=== PATIENT | female | born 1940 | race Caucasian/White ===

== ENCOUNTER → 2018-02-02 15:00 | Outpatient (CLI) | payer MEDICARE, SELFPAY | PROVIDERS: PCP Family Medicine; Visit Provider Nurse Practitioner Family | DX: Z45.018 Encounter for adjustment and management of other part of cardiac pacemaker (principal); I49.5 Sick sinus syndrome; I10 Essential (primary) hypertension; R55 Syncope and collapse | CPT/HCPCS: 93288; 99213 ==

== ENCOUNTER → 2018-08-31 15:12 | Outpatient (BNVA) | payer MEDICARE, SELFPAY | PROVIDERS: PCP Family Medicine; Visit Provider Nurse Practitioner Family | DX: I10 Essential (primary) hypertension (principal); I49.5 Sick sinus syndrome; Z45.010 Encounter for checking and testing of cardiac pacemaker pulse generator [battery] | CPT/HCPCS: 93288; 99213 ==

== ENCOUNTER 2018-10-25 02:20 | Outpatient (CLI) | payer MEDICARE, SELFPAY ==
[2018-10-25 11:46] LABS: ALT 28 U/L (12-78); AST 25 U/L (15-37); Albumin 3.7 g/dL (3.4-5.0); Alkaline Phosphatase 42 U/L (46-116); Anion Gap 8.2 mmol/L (3-11); BUN 11 mg/dL (7-18); Bilirubin, Total 0.5 mg/dL (0.2-1.0); CO2 29.8 mmol/L (21.0-32.0); CREATININE 0.89 mg/dL (0.55-1.02); Calcium 9.2 mg/dL (8.5-10.1); Chloride 105 mmol/L (98-107); Cholesterol 191 mg/dL (50-200); Glucose 86 mg/dL (70-100); HDL Cholesterol 53 mg/dL (40-60); LDL CHOLESTEROL 116 mg/dL (<100); Potassium 4.1 mmol/L (3.5-5.1); Sodium 143 mmol/L (136-145); TSH (W/Ref FT4) 3.47 uIU/mL (0.358-3.74); Total Protein 6.9 g/dL (6.4-8.2); Triglyceride 97 mg/dL (30-150)
== END 2018-10-25 02:40 ==
PROVIDERS: PCP Family Medicine; Visit Provider Family Medicine
DX: E03.9 Hypothyroidism, unspecified (principal); E78.5 Hyperlipidemia, unspecified; I10 Essential (primary) hypertension
CPT/HCPCS: 36415; 80053; 80061; 83721; 84443

== ENCOUNTER 2018-10-27 09:08 | Outpatient (CLI) | payer MEDICARE, SELFPAY ==
--- NOTE | 2018-10-27 08:00 | DI.RAD_ITS ---
SYMPTOM/DIAGNOSIS: LT SHOULDER PAIN M25.519 LEFT SHOULDER: Five views. There are mild hypertrophic changes seen at the acromioclavicular joint and greater tuberosity. The glenohumeral joint appears well maintained apart from mild spurring at the inferior aspect of the glenoid. The bones are intact. The soft tissues are unremarkable. IMPRESSION: Mild degenerative changes of the left shoulder.
== END 2018-10-27 09:28 ==
PROVIDERS: PCP Family Medicine; Visit Provider Family Medicine
DX: M25.512 Pain in left shoulder (principal); M19.012 Primary osteoarthritis, left shoulder
CPT/HCPCS: 73030

== ENCOUNTER → 2019-03-08 14:38 | Outpatient (BNVA) | payer MEDICARE, SELFPAY | PROVIDERS: PCP Family Medicine; Visit Provider Nurse Practitioner Family | DX: I49.5 Sick sinus syndrome (principal); I10 Essential (primary) hypertension; Z45.018 Encounter for adjustment and management of other part of cardiac pacemaker | CPT/HCPCS: 93280; 99024 ==

== ENCOUNTER → 2020-02-29 10:20 | Outpatient (BNVA) | payer MEDICARE, SELFPAY | PROVIDERS: PCP Family Medicine; Referring Provider Family Medicine; Visit Provider Internal Medicine Cardiovascular Disease | DX: I48.91 Unspecified atrial fibrillation (principal); Z45.018 Encounter for adjustment and management of other part of cardiac pacemaker | CPT/HCPCS: 93280; 99212 ==

== ENCOUNTER 2020-09-18 11:44 | Outpatient (REF) | payer MEDICARE, SELFPAY ==
[2020-09-18 12:56] LABS: ALT 34 U/L (14-59); AST 31 U/L (15-37); Albumin 3.9 g/dL (3.4-5.0); Alkaline Phosphatase 39 U/L (46-116); Anion Gap 9.2 mmol/L (3-11); BUN 10 mg/dL (7-18); Bilirubin, Total 0.6 mg/dL (0.2-1.0); CO2 28.8 mmol/L (21.0-32.0); CREATININE 0.9 mg/dL (0.55-1.02); Calculated LDL 117 mg/dL (<100); Chloride 106 mmol/L (98-107); Cholesterol 198 mg/dL (<200); Glucose 71 mg/dL (74-106); HDL Cholesterol 62 mg/dL (40-60); Potassium 4.4 mmol/L (3.5-5.1); Sodium 144 mmol/L (136-145); TSH (W/Ref FT4) 6.79 uIU/mL (0.36-3.74); Triglyceride 99 mg/dL (<150)
[2020-09-18 13:44] LABS: FREE T4 1.03 ng/dL (0.76-1.46)
== END 2020-09-18 11:45 | disposition home or self-care (01) ==
LOC: LBN 11:44
PROVIDERS: PCP Family Medicine; Visit Provider Family Medicine
DX: E03.9 Hypothyroidism, unspecified (principal); E78.5 Hyperlipidemia, unspecified
CPT/HCPCS: 80053; 80061; 84439; 84443

== ENCOUNTER → 2020-10-17 13:47 | Outpatient (BNVA) | payer MEDICARE, SELFPAY | PROVIDERS: PCP Family Medicine; Referring Provider Family Medicine; Visit Provider Physician Assistant | DX: I49.5 Sick sinus syndrome (principal); Z45.018 Encounter for adjustment and management of other part of cardiac pacemaker | CPT/HCPCS: 93280; 99212 ==

== ENCOUNTER 2021-03-14 12:11 | Outpatient (CLI) | payer MEDICARE, SELFPAY ==
--- NOTE | 2021-03-14 10:30 | DI.RAD_ITS ---
Exam(s) XR STANDING ALIGNMENT XR KNEE RT 1V EXAM: XR STANDING ALIGNMENT and XR knee RT 1 V CLINICAL HISTORY: right knee pain. TECHNIQUE: 2D digital imaging was performed. Five views were obtained. COMPARISON: CR XR KNEE RT 1V from 03/14/2021 FINDINGS: The hips are well maintained. The patient has a left total knee replacement. The orthopedic hardwar e appears in good position on the single frontal view of the knee. In the right knee there is marked narrowing of the medial femoral tibial joint space. Periarticular spurring is seen involving all 3 joint compartments. Chondrocalcinosis in the femoral tibial joint is noted. There is a tiny knee rj int effusion. Atherosclerosis is present. The ankles are well maintained. The right lower extremit y measures 87.1 cm. The left lower extremity measures 87.8 cm. IMPRESSION: 1. Moderately severe osteoarthritis of the right knee. 2. Left TKR. DATA REPOSITORY: RADIATION DOSE DELIVERED:
== END 2021-03-14 12:12 | disposition home or self-care (01) ==
LOC: DIORS 12:11
PROVIDERS: PCP Family Medicine; Referring Provider Family Medicine; Visit Provider Student in an Organized Health Care Education/Training Program
DX: G89.29 Other chronic pain (principal); M25.561 Pain in right knee; M17.11 Unilateral primary osteoarthritis, right knee
CPT/HCPCS: 99213; 73560; 77073

== ENCOUNTER → 2021-04-17 13:55 | Outpatient (BNVA) | payer MEDICARE, SELFPAY | PROVIDERS: PCP Family Medicine; Referring Provider Family Medicine; Visit Provider Physician Assistant | DX: I49.5 Sick sinus syndrome (principal); Z45.018 Encounter for adjustment and management of other part of cardiac pacemaker | CPT/HCPCS: 93280; 99211 ==

== ENCOUNTER → 2021-10-16 13:54 | Outpatient (BNVA) | payer MEDICARE, SELFPAY | PROVIDERS: PCP Family Medicine; Referring Provider Family Medicine; Visit Provider Physician Assistant | DX: Z95.0 Presence of cardiac pacemaker (principal) | CPT/HCPCS: 93280 ==

== ENCOUNTER 2021-10-23 04:45 | Outpatient (CLI) | payer MEDICARE, SELFPAY ==
[2021-10-23 10:11] LABS: ALT 30 U/L (14-59); AST 25 U/L (15-37); Alkaline Phosphatase 39 U/L (46-116); Anion Gap 4.6 mmol/L (3-11); BUN 15 mg/dL (7-18); Bilirubin, Total 0.8 mg/dL (0.2-1.0); CO2 30.4 mmol/L (21.0-32.0); Calcium 9.2 mg/dL (8.5-10.1); Calculated LDL 138 mg/dL (<100); Chloride 101 mmol/L (98-107); Cholesterol 223 mg/dL (<200); Estimated GFR 53.21 (mL/min/1.73m2); Glucose 90 mg/dL (74-106); HDL Cholesterol 68 mg/dL (40-60); Potassium 4.1 mmol/L (3.5-5.1); Sodium 136 mmol/L (136-145); TSH (W/Ref FT4) 3.82 uIU/mL (0.36-3.74); Total Protein 6.9 g/dL (6.4-8.2); Triglyceride 89 mg/dL (<150)
[2021-10-23 10:30] LABS: FREE T4 1.05 ng/dL (0.76-1.46)
== END 2021-10-23 04:46 | disposition home or self-care (01) ==
LOC: LBO 04:45
PROVIDERS: PCP Family Medicine; Visit Provider Family Medicine
DX: I10 Essential (primary) hypertension (principal); E03.9 Hypothyroidism, unspecified; E78.5 Hyperlipidemia, unspecified
CPT/HCPCS: 36415; 80053; 80061; 84439; 84443

== ENCOUNTER 2022-04-16 08:38 | Outpatient (CLI) | payer MEDICARE, SELFPAY ==
--- NOTE | 2022-04-16 08:30 | RT.EKG_ITS ---
APPROVED REPORT Exam: Resting ECG Reason for Exam: afib Patient Location: O HR:84 bpm ECG Measurements Heart Rate 84 AXIS UT 168 P -19 QRSd 86 QRS 60 QT 364 T 26 QTc 431 Conclusion Atrial paced rhythm Low voltage, extremity leads...all extremity leads <0.5mV
== END 2022-04-16 08:39 | disposition home or self-care (01) ==
LOC: DI.CARD 08:39
PROVIDERS: PCP Family Medicine; Visit Provider Physician Assistant
DX: H35.30 Unspecified macular degeneration (principal); I48.91 Unspecified atrial fibrillation; R94.31 Abnormal electrocardiogram [ECG] [EKG]
CPT/HCPCS: 93010

== ENCOUNTER → 2022-04-16 14:02 | Outpatient (BNVA) | payer MEDICARE, SELFPAY | PROVIDERS: PCP Family Medicine; Visit Provider Physician Assistant | DX: I49.5 Sick sinus syndrome (principal); Z95.0 Presence of cardiac pacemaker | CPT/HCPCS: 93005; 93280 ==

== ENCOUNTER 2022-10-14 19:33 | Emergency (ER) | payer MEDICARE, SELFPAY ==
[2022-10-14] VITALS (27 sets, daily range): BP systolic 134–162; BP diastolic 63–83; PULSE 80–98; RESP 12–27; TEMP 36.8; O2SAT 91–98
--- NOTE | 2022-10-14 19:15 | RT.EKG_ITS ---
APPROVED REPORT Exam: Resting ECG Reason for Exam: syncope Patient Location: E HR:84 bpm ECG Measurements Heart Rate 84 AXIS ND 155 P 71 QRSd 88 QRS 72 QT 370 T 52 QTc 437 Conclusion Sinus rhythm...normal P axis, V-rate 60- 99 Ventricular premature complex...V complex w/ short R-R interval Low voltage, extremity leads...all extremity leads <0.5mV Physician: no stemi
[2022-10-14] MEDS: Normal Saline 500 ML IV (20:23)
[2022-10-14 20:29] LABS: Abs Immature Grans 0.03 10^3/uL (0.0-0.06); Absolute Basophil Count 0.04 10^3/uL (0.0-0.2); Absolute Eosinophil Count 0.15 10^3/uL (0.0-0.7); Absolute Lymphocyte Count 0.68 10^3/uL (1.2-3.4); Absolute Monocyte Count 0.49 10^3/uL (0.1-0.8); Absolute Neutrophil Count 9.22 10^3/uL (1.2-6.7); Basophils % 0.4; Eosinophils % 1.4; HCT 42.8 % (36.0-46.0); HGB 14.4 g/dL (11.2-15.7); Immature Grans % 0.3; Lymphocytes % 6.4; MCH 29.7 pg (27.0-33.0); MCHC 33.6 % (32.0-36.0); MCV 88 fL (80-95); MPV 10.9 fL (8.0-11.0); Monocytes % 4.6; Neutrophils % 86.9; Platelet Count 157 10^3/uL (130-400); RBC 4.85 10^6/uL (3.93-5.22); RDW 13.2 % (11.7-14.6); RDW-SD 42.6 fL; WBC 10.61 10^3/uL (4.4-10.8)
--- NOTE | 2022-10-14 20:31 | NUR.NOTE ---
Nursing Note: Pace maker interrogated at bedside.
[2022-10-14 20:57] LABS: ALT 31 U/L (14-59); AST 41 U/L (15-37); Albumin 4.2 g/dL (3.4-5.0); Alkaline Phosphatase 40 U/L (46-116); Anion Gap 9.4 mmol/L (3-11); BUN 23 mg/dL (7-18); Bilirubin, Total 0.7 mg/dL (0.2-1.0); CO2 24.6 mmol/L (21.0-32.0); CREATININE 1.1 mg/dL (0.55-1.02); Calcium 9.5 mg/dL (8.5-10.1); Chloride 102 mmol/L (98-107); Estimated GFR 50.17 (mL/min/1.73m2); Glucose 85 mg/dL (74-106); NT-proBNP 129 pg/mL (<300); Potassium 3.6 mmol/L (3.5-5.1); Sodium 136 mmol/L (136-145); TSH (W/Ref FT4) 7.87 uIU/mL (0.36-3.74); Total Protein 7.8 g/dL (6.4-8.2); Troponin I < 50 ng/L (<or=60)
--- NOTE | 2022-10-14 21:00 | DI.CT_ITS ---
Exam(s) CT HEAD WO EXAM: CT HEAD WO CLINICAL HISTORY: near syncope, r/o stroke. TECHNIQUE: Imaging Protocol: Axial computed tomography images with coronal and sagittal reformatted images were created and reviewed COMPARISON: CT HEAD WITHOUT CONTRAST from 03/24/2017 FINDINGS: Ventricles and Extra axial spaces: Normal in size and morphology for the patient's age. Hemorrhage: None. Cerebral parenchyma: No acute territorial infarct is identified. There are areas of decreased attenu ation in the white matter most consistent with small vessel ischemic disease. Midline shift: None. Brainstem/Cerebellum: Normal. Calvarium: Normal. Visualized Paranasal sinuses/Mastoids: Clear. Soft Tissues: Unremarkable. IMPRESSION: No acute intracranial process. RADIATION DOSE DELIVERED: 736.93mGy.cm Total DLP DATA REPOSITORY: All CT scans at this facility are submitted to the National Radiology Data Registry (NRDR) Dose Index Registry (DIR) with the [employer] (ACR). RADIATION OPTIMIZATION: All CT scans at this facility use at least one of these dose optimization te chniques: automated exposure control; mA and/or kV adjustment per patient size (includes targeted exa ms where dose is matched to clinical indication); or iterative reconstruction.
--- NOTE | 2022-10-14 21:29 | ED.GENADUL_ITS ---
Discharge Plan Disposition Patient Disposition: Home Condition: Good Discharge Details Chief Complaint: Dizzy/Sync Clinical Impression: Lightheadedness Primary Care Provider: Karina Sahu ED Provider: Luis Alberto Carreno Home Meds and New Rx's Prescriptions: No Action Repel-X See Rx Instructions PO DAILY Patient Comments: 1 TAB PO DAILY; Rx Instructions: 1 TAB PO DAILY; hydrocortisone [Proctosol HC] 2.5 % cream with perineal applicator 1 applic OR BID PRN (Reason: hemorrhoids) Qty: 30 0RF lorazepam 0.5 mg tablet 0.5 mg PO HS PRN (Reason: insomnia) Qty: 30 0RF triamcinolone acetonide 0.1 % cream 1 applic TP BID PRN (Reason: irritation) Qty: 80 0RF multivitamin 1 EACH tablet 1 tab PO DAILY glucosam-chond qs-iodhsq-ux ac 1 EACH capsule 1 cap PO DAILY calcium carb and citrate-vitD3 1 EACH tablet extended release 1 tab PO DAILY Rx Instructions: 1400MG/2000U cholecalciferol (vitamin D3) [Vitamin D3] 2,000 UNIT capsule 2,000 unit PO DAILY albuterol sulfate 90 mcg/actuation HFA aerosol inhaler 2 puff IH QID PRN (Reason: bronchospasm) Qty: 18 4RF Rx Instructions: dispense with spacer amlodipine 5 mg tablet 5 mg PO DAILY Qty: 90 3RF losartan-hydrochlorothiazide 100-25 mg tablet 1 tab PO DAILY Qty: 90 4RF simvastatin [Zocor] 10 mg tablet 10 mg PO HS Qty: 90 3RF meloxicam 15 mg tablet 15 mg PO DAILY Qty: 90 1RF Rx Instructions: Take one tablet daily for inflammation and pain levothyroxine 88 mcg tablet 88 mcg PO DAILY Qty: 90 1RF acetaminophen [Tylenol Extra Strength] 500 MG tablet 1 tab PO BID PRN (Reason: Pain) Discharge Instructions Instructions: Lightheadedness (ED) Additional Instructions: At this time your work-up is reassuring. I suspect there may have been a component of mild dehydration that brought about your symptoms. Your pacemaker showed no significant concerning rhythm. Please stay well-hydrated and drink plenty of fluids. 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 If you notice any worsening of your symptoms, or any new symptoms such as vomiting, diarrhea, fever, chills, shortness of breath, chest pain, numbness, weakness, or fainting , please return immediately to the emergency department for reevaluation. Please follow up with your primary care provider as soon as possible for reassessment and reevaluation. As always, it was a pleasure participating in your medical care today. Referrals: Karina Sahu MD, [place] [Primary Care Provider] - Medical Decision Making 82-year-old female with a past medical history of sick sinus syndrome, meralgia paresthetica, anemia, pacemaker with dual-lead Medtronic advisor pacemaker who presents today for mild lightheadedness. Patient states that she was cooking liver and onions this evening when she started to feel lightheaded. She denies any tunnel vision, ebmen-jjp-nlyrx vision, seeing stars, headache, chest pain, palpitations, numbness, tingling or weakness. She went outside and sat down and felt much better. EMS was called, and when they arrived she stood up to go see them and again felt lightheaded. No syncope whatsoever. No other complaints at this time. She feels well now. She denies any alcohol use. She states that she has been drinking fluids today. No other modifying factors. Physical exam demonstrates a well-appearing female, no significant abnormalities clinically. Bedside echo appears stable. Patient looks well. No focal neurologic deficits on exam to suggest stroke. Suspect dehydration to be a component however dysrhythmia certainly of concern as well. EKG is stable. Will interrogate the pacemaker, gently rehydrate, check basic labs, get a CT scan of the head, monitor closely and reassess. 10:24 PM EKG is stable. Interrogated pacemaker shows no events of VT/fast AV, or AT/AF. Nothing of significance or on interrogation report during this period. Patient feels well And is requesting to go home. Troponin normal. I did discuss options of continued observation versus discharge and patient is requesting discharge with close follow-up. She does have a cardiology appointment tomorrow. She will be following up with them. At this time respecting the patient's wishes I do feel that this is a reasonable path especially in light of the work-up being notably stable/unremarkable. Discussed red flags for which to return with family there. I have extensively reviewed the treatment plan and discharge instructions with the patient and their family. I have addressed all patient concerns at this time. The patient and family was made aware of what symptoms to monitor for that would warrant a return to the emergency department. Discussed the plan with the patient and family, they demonstrate verbal understanding and agreement with our assessment and plan at this time. The d ocumentation in this chart was dictated using [employer] dictation software. Please excuse any dictation errors. FINDINGS: Brain: There is no acute intracranial hemorrhage, mass effect or midline shift. No large acute territorial infarct identified. There are patchy regions of hypodensity in the periventricular and subcortical white matter, likely on the basis of chronic microvascular ischemic disease. Cerebral ventricles: The ventricles and sulci are prominent in size, which is at least in part due to global cerebral volume loss. Paranasal sinuses: Visualized sinuses are unremarkable. No fluid levels. Mastoid air cells: Visualized mastoid air cells are well aerated. Bones/joints: No acute fracture. Soft tissues: Unremarkable. IMPRESSION: No acute intracranial hemorrhage, mass effect or midline shift. If there is further clinical concern for acute infarct, MRI may be considered. ASSESSMENT: ASPECTS ([place] Stroke Program Early CT Score) is 10. Thank you for allowing us to participate in the care of your patient. Dictated and Authenticated by: Miryam Newell MD 10/14/2022 9:37 PM Eastern Time ([place] & [place]) HPI General Date/Time Provider Initiated Documentation: 10/14/22 19:50 . HPI Narrative: 82-year-old female with a past medical history of sick sinus syndrome, meralgia paresthetica, anemia, pacemaker with dual-lead Medtronic advisor pacemaker who presents today for mild lightheadedness. Patient states that she was cooking liver and onions this evening when she started to feel lightheaded. She denies any tunnel vision, qfdju-eml-lhdgq vision, seeing stars, headache, chest pain, palpitations, numbness, tingling or weakness. She went outside and sat down and felt much better. EMS was called, and when they arrived she stood up to go see them and again felt lightheaded. No syncope whatsoever. No other complaints at this time. She feels well now. She denies any alcohol use. She states that she has been drinking fluids today. No other modifying factors. Related Data Home Medications Medication Instructions Recorded Confirmed calcium carb,cit ER 600 mg-vit D3 1 tab PO DAILY 09/22/12 04/16/22 12.5 mcg (500 unit) tablet,ext.rel pjrzjlxmpp-ozqfhldhwi-agiqffml-hyalur 1 cap PO DAILY 09/22/12 04/16/22 ac 375 mg-300 mg-175 mg-2 mg cap multivitamin 1 tab PO DAILY 09/22/12 04/16/22 cholecalciferol (vitamin D3) 50 2,000 unit PO DAILY 01/05/13 04/16/22 mcg (2,000 unit) capsule (Vitamin D3) acetaminophen 500 mg tablet 1 tab PO BID PRN Pain 12/27/13 04/16/22 (Tylenol Extra Strength) Repel-X See Rx Instructions PO DAILY 04/05/18 04/16/22 hydrocortisone 2.5 % topical cream 1 applic OR BID PRN hemorrhoids 04/05/18 04/16/22 with perineal applicator #30 grams (Proctosol HC) albuterol sulfate 90 mcg/actuation 2 puff inhalation QID PRN 06/08/18 04/16/22 aerosol inhaler bronchospasm #18 grams lorazepam 0.5 mg tablet 0.5 mg PO HS PRN insomnia #30 03/04/22 04/16/22 tab-caps triamcinolone acetonide 0.1 % 1 applic topical BID PRN 03/04/22 04/16/22 topical cream irritation #80 grams amlodipine 5 mg tablet 5 mg PO DAILY #90 tabs 07/23/22 losartan 100 1 tab PO DAILY #90 tabs 07/23/22 mg-hydrochlorothiazide 25 mg tablet simvastatin 10 mg tablet (Zocor) 10 mg PO HS #90 tab-caps 07/23/22 levothyroxine 88 mcg tablet 88 mcg PO DAILY #90 tab-caps 10/01/22 meloxicam 15 mg tablet 15 mg PO DAILY #90 tabs 10/01/22 Previous Rx's Medication Instructions Recorded hydrocortisone 2.5 % topical cream 1 applic OR BID PRN hemorrhoids 04/05/18 with perineal applicator #30 grams (Proctosol HC) albuterol sulfate 90 mcg/actuation 2 puff inhalation QID PRN 06/08/18 aerosol inhaler bronchospasm #18 grams lorazepam 0.5 mg tablet 0.5 mg PO HS PRN insomnia #30 03/04/22 tab-caps triamcinolone acetonide 0.1 % 1 applic topical BID PRN 03/04/22 topical cream irritation #80 grams amlodipine 5 mg tablet 5 mg PO DAILY #90 tabs 07/23/22 losartan 100 1 tab PO DAILY #90 tabs 07/23/22 mg-hydrochlorothiazide 25 mg tablet simvastatin 10 mg tablet (Zocor) 10 mg PO HS #90 tab-caps 07/23/22 levothyroxine 88 mcg tablet 88 mcg PO DAILY #90 tab-caps 10/01/22 meloxicam 15 mg tablet 15 mg PO DAILY #90 tabs 10/01/22 Allergies Allergy/AdvReac Type Severity Reaction Status Date / Time lisinopril AdvReac Intermediate cough Verified 03/10/22 11:34 General Stated Complaint: Dizzy/Sync HIPOLITO: 3 Review of Systems All systems reviewed & are unremarkable except as noted in HPI and below PFSH All Active Problems Lightheadedness (Acute) Sick sinus syndrome (Acute) Cellulitis (Acute) Hypertension (Chronic) Degenerative joint disease of right knee (Acute) Anxiety (Acute) Status post left knee replacement (Acute 04/20/14) Vitamin D deficiency (Chronic 04/28/09) Retinal detachment (Chronic) 1976- Buckle surgery Refusal of blood transfusions as patient is Synagogue (Chronic 01/10/14) Hypothyroidism (Chronic 01/06/14) new 01/09/14 Hyperlipidemia (Chronic) 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 Ferdinand CALDERON Essential hypertension (Chronic 04/11/13) Chronic pain of right knee (Chronic 10/05/17) Cardiac pacemaker in situ (Chronic) Dual lead Medtronic implanted 03/04/2016 for Sick sinus syndrome Age-related macular degeneration (Acute) Dr Browne Arthralgias (Chronic) Medical History A-fib Anemia 11/07/13 appt for colonoscopy Anemia (11/07/13) Anxiety Hyperglycemia Knee pain (12/13/09) S/P synvisc L knee replacement Left thigh pain (01/20/17) Meralgia paresthetica Migraine Migraine Open fracture of distal end of radius 02/07/13 Open fracture of distal end of radius (02/07/13) Open fracture of tibia AND fibula (02/07/13) Open comminuted fracture of distal radius and ulnar styloid on the right. ORIF of a comminuted intraarticular fracture distal radius and ulnar styloid on the right. There are a minimum of three pieces fixated. (Dr. Rosanna Curry 02-08-2013) Rectal pain Shoulder pain Smoker quit 1989 (12py hx) Smoker Surgical History Appendectomy Colonoscopy - MAC 12/2013 EGD - MAC (12/27/13) H/O esophagogastroduodenoscopy History of appendectomy History of esophagogastroduodenoscopy Hx of appendectomy Pacemaker REPL PACEM W DUAL-KILEY, 09/02 and 03/04/16 placed on the Right Status post knee replacement 04/20/14 left Family History Mother , 85 Heart disease Myocardial infarction Father , 69 Lung cancer Brother Myocardial infarction Brother Hypercholesterolemia Grandson Osteosarcoma Maternal Grandfather , 62 Heart disease Paternal Grandfather , 80 Cancer Maternal Grandmother , 82 Heart disease Paternal Grandmother , 80 Cancer Social History Smoking/Tobacco Use Status: Former Tobacco Use tobacco type: cigarettes Tobacco: How many years used: 45 Second Hand Exposure: No Smoking risk assessment performed?: Yes Alcohol Intake: current Alcohol Intake frequency: a few times a week Alcohol type: wine Drug use: Never Substance use type: does not use Caregiver/Support person: No Household members: family Communication Needs: Corrective Lenses Do you need help understanding health information?: Often current occupation: [employer] Pets and animals: No Sexually active: No What is your relationship status?: How often do you talk on the phone with friends or family?: three or more times per week How often do you get together with friends or relatives?: three or more times per week How often do you attend christianity or buddhism services?: 4 or more times per year Do you belong to any clubs or organized social groups?: no Panel score (0-1 are the most socially isolated patients): 2 What type of physical activity do you participate in: walking Frequency: daily Denise/Sikh: Synagogue Special denise needs: Yes (No blood) Agree to transfusion: No Seatbelt use: always Helmet use: No Drive intox or ride w/intox laundry route driver: No Do you feel safe at home: Yes Do you feel safe in your relationship?: Yes Exam Narrative Exam Narrative: 1.Const: Well-nourished, Well-developed, appearing stated age 2.Eyes: PERRL, no conjunctival injection, and symmetrical lids. 3.ENT: Atraumatic external nose and ears. Dry MM. Neck: Symmetric, trachea midline, No thyromegaly. 4.CVS: +S1/S2, No murmurs or gallops. Peripheral pulses 2+ and equal in all extremities. Brisk capillary refill in all extremities. 5.RESP: Unlabored respiratory effort. Clear to auscultation bilaterally. No wheezes rales or rhonchi 6.GI: Soft, Nontender/Nondistended, No hepatosplenomegaly. No guarding or rebound. 7.MSK: Normocephalic/Atraumatic, Extremities w/o deformity or ttp No cyanosis or clubbing, Normal movement of all extremities 8.Skin: Warm, Dry. No rashes or lesions. 9.Neuro: psychologist developmental II-XII grossly intact. Sensation grossly intact, no focal neurologic deficits. All 6 cardinal planes of vision are fully intact. No evidence of rotatory or vertical nystagmus. The patient demonstrated a normal mnoado-xfcx-aixyoe, good dexterity. There was no evidence of dysdiadochokinesia. Patient was able to ambulate without difficulty. There was no wide-based gait. Romberg testing was normal. Uarg-gi-jqkc testing was normal. Sensation was intact bilaterally as well as muscle strength bilaterally for all extremities. Patient was able to verbalize butter cup with no slurring, or miss pronunciation. 10.Psych: (AAO) x3. Appropriate mood and affect Course Vital Signs Vital signs: Vital Signs Temperature 36.8 C 10/14/22 19:25 Pulse 92 H 10/14/22 19:25 Respiratory Rate 16 10/14/22 19:25 Blood Pressure 162/83 H 10/14/22 19:25 Pulse Oximetry 98 10/14/22 19:25 Temperature 36.8 C 10/14/22 19:25 Temperature Source Oral 10/14/22 19:25 Pulse 81 10/14/22 21:16 Pulse 81 10/14/22 21:20 Respiratory Rate 20 10/14/22 21:20 Respiratory Effort Normal, Non-Labored 10/14/22 19:37 Respiratory Depth Normal 10/14/22 19:37 Respiratory Pattern Normal 10/14/22 19:37 Blood Pressure 138/70 10/14/22 21:16 Blood Pressure Mean 87 10/14/22 21:16 Blood Pressure Position Supine 10/14/22 19:25 Pulse Oximetry 98 10/14/22 19:25 Oxygen Delivery Method Room Air 10/14/22 19:25 Oxygen Flow Rate 0 10/14/22 19:25 Pain Level 0 10/14/22 19:25 Lab/Test Results Lab/Test Results: Laboratory Tests Range/Units 10/14/22 10/14/22 19:55 19:55 WBC (4.4-10.8) 10^3/uL 10.61 RBC (3.93-5.22) 10^6/uL 4.85 Hgb (11.2-15.7) g/dL 14.4 Hct (36.0-46.0) % 42.8 MCV (80-95) fL 88 MCH (27.0-33.0) pg 29.7 MCHC (32.0-36.0) % 33.6 RDW (11.7-14.6) % 13.2 Plt Count (130-400) 10^3/uL 157 MPV (8.0-11.0) fL 10.9 Immature Gran % 0.3 Neutrophils % 86.9 Lymphocytes % 6.4 Monocytes % 4.6 Eosinophils % 1.4 Basophils % 0.4 Nucleated RBC % (0.0-0.3) % 0.0 Absolute Neutrophils (1.2-6.7) 10^3/uL 9.22 H Absolute Lymphocytes (1.2-3.4) 10^3/uL 0.68 L Absolute Monocytes (0.1-0.8) 10^3/uL 0.49 Absolute Eosinophils (0.0-0.7) 10^3/uL 0.15 Absolute Basophils (0.0-0.2) 10^3/uL 0.04 Sodium (136-145) mmol/L 136 Potassium (3.5-5.1) mmol/L 3.6 Chloride (98-107) mmol/L 102 Carbon Dioxide (21.0-32.0) mmol/L 24.6 Anion Gap (3-11) mmol/L 9.4 BUN (7-18) mg/dL 23 H Creatinine (0.55-1.02) mg/dL 1.1 H Est GFR (CKD-EPI 2020) (mL/min/1.73m2) 50.17 Glucose (74-106) mg/dL 85 Calcium (8.5-10.1) mg/dL 9.5 Total Bilirubin (0.2-1.0) mg/dL 0.7 AST (15-37) U/L 41 H ALT (14-59) U/L 31 Alkaline Phosphatase (46-116) U/L 40 L Troponin I (<or=60) ng/L < 50 NT-Pro-B Natriuret Pep (<300) pg/mL 129 Total Protein (6.4-8.2) g/dL 7.8 Albumin (3.4-5.0) g/dL 4.2 TSH (0.36-3.74) uIU/mL 7.87 H Free T4 (0.76-1.46) ng/dL 1.10 POCUS Exam (ED) Limited Cardiac Exam DATE OF EXAM: 10/14/22 TIME OF EXAM: 22:12 PROVIDER THAT PERFORMED THE STUDY: Luis Alberto Carreno IS THIS A REPEAT EXAM DURING THIS ENCOUNTER: no REASON FOR EXAM: Syncope VISUALIZED STRUCTURES: Left atrium, Left ventricle, Right ventricle and Interventricular septum VIEW OBTAINED: Parasternal long-axis and Parasternal short-axis PERTINENT FINDINGS/IMPRESSION: No apparent abnormalities Exam complete
--- NOTE | 2022-10-14 21:38 | DI.VRAD_ITS ---
PROCEDURE INFORMATION: Exam: CT Head Without Contrast Exam date and time: 10/14/2022 9:28 PM Age: 82 years old Clinical indication: Stroke-like symptoms; Syncope/collapse; Additional info: Near syncope, R/O stroke TECHNIQUE: Imaging protocol: Computed tomography of the head without contrast. Radiation optimization: All CT scans at this facility use at least one of these dose optimization techniques: automated exposure control; mA and/or kV adjustment per patient size (includes targeted exams where dose is matched to clinical indication); or iterative reconstruction. Other technique: STROKE PROTOCOL was implemented. COMPARISON: CT HEAD WITHOUT CONTRAST 03/24/2017 11:10 PM FINDINGS: Brain: There is no acute intracranial hemorrhage, mass effect or midline shift. No large acute territorial infarct identified. There are patchy regions of hypodensity in the periventricular and subcortical white matter, likely on the basis of chronic microvascular ischemic disease. Cerebral ventricles: The ventricles and sulci are prominent in size, which is at least in part due to global cerebral volume loss. Paranasal sinuses: Visualized sinuses are unremarkable. No fluid levels. Mastoid air cells: Visualized mastoid air cells are well aerated. Bones/joints: No acute fracture. Soft tissues: Unremarkable. IMPRESSION: No acute intracranial hemorrhage, mass effect or midline shift. If there is further clinical concern for acute infarct, MRI may be considered. ASSESSMENT: ASPECTS ([place] Stroke Program Early CT Score) is 10. Dictated and Authenticated by: Miryam Paul MD. Ordering:DAYA Sahu MD
== END 2022-10-14 22:31 | disposition home or self-care (01) ==
PROVIDERS: Emergency Provider Student in an Organized Health Care Education/Training Program; PCP Family Medicine
DX: R42 Dizziness and giddiness (principal); I48.91 Unspecified atrial fibrillation; Z95.0 Presence of cardiac pacemaker
CPT/HCPCS: 80053; 93005; 93308; 96360; 99284; 70450; 83880; 84439; 84443; 84484; 85025; 93010

== ENCOUNTER → 2022-10-15 13:54 | Outpatient (BNVA) | payer MEDICARE, SELFPAY | PROVIDERS: PCP Family Medicine; Visit Provider Physician Assistant | DX: Z46.89 Encounter for fitting and adjustment of other specified devices (principal); Z95.0 Presence of cardiac pacemaker; I48.91 Unspecified atrial fibrillation; I49.5 Sick sinus syndrome | CPT/HCPCS: 93280 ==

== ENCOUNTER 2023-09-14 09:02 | Outpatient (CLI) | payer MEDICARE, SELFPAY ==
[2023-09-14 13:02] LABS: ALT 30 U/L (14-59); AST 27 U/L (15-37); Albumin 3.8 g/dL (3.4-5.0); Alkaline Phosphatase 34 U/L (46-116); Anion Gap 10.4 mmol/L (3-11); BUN 18 mg/dL (7-18); Bilirubin, Total 0.6 mg/dL (0.2-1.0); CO2 26.6 mmol/L (21.0-32.0); CREATININE 1.2 mg/dL (0.55-1.02); Calcium 9.1 mg/dL (8.5-10.1); Calculated LDL 106 mg/dL (<100); Chloride 101 mmol/L (98-107); Cholesterol 191 mg/dL (<200); Estimated GFR 45.19 (mL/min/1.73m2); Glucose 89 mg/dL (74-106); HDL Cholesterol 76 mg/dL (40-60); Potassium 3.6 mmol/L (3.5-5.1); Sodium 138 mmol/L (136-145); TSH (W/Ref FT4) 4.04 uIU/mL (0.36-3.74); Total Protein 6.9 g/dL (6.4-8.2); Triglyceride 45 mg/dL (<150)
[2023-09-14 13:28] LABS: FREE T4 0.96 ng/dL (0.76-1.46)
== END 2023-09-14 09:03 | disposition home or self-care (01) ==
LOC: LOS 09:03
PROVIDERS: PCP Family Medicine; Visit Provider Family Medicine
DX: I10 Essential (primary) hypertension (principal); E03.9 Hypothyroidism, unspecified
CPT/HCPCS: 36415; 80053; 80061; 84439; 84443

== ENCOUNTER → 2023-10-14 14:19 | Outpatient (BNVA) | payer MEDICARE, SELFPAY | PROVIDERS: PCP Family Medicine; Visit Provider Student in an Organized Health Care Education/Training Program | DX: I48.91 Unspecified atrial fibrillation (principal); I49.5 Sick sinus syndrome; Z45.010 Encounter for checking and testing of cardiac pacemaker pulse generator [battery] | CPT/HCPCS: 93280 ==

== ENCOUNTER 2024-09-27 10:56 | Outpatient (CLI) | payer MEDICARE, SELFPAY ==
--- NOTE | 2024-09-27 10:45 | DI.RAD_ITS ---
Exam(s) XR SHOULDER RT COMPLETE 2+V EXAM: XR SHOULDER RT COMPLETE 2+V CLINICAL HISTORY: r shoulder pain, M25.511. TECHNIQUE: 2D digital imaging was performed of the right shoulder. Five images were obtained. AP, Grashey, Y-view and axillary views were obtained. COMPARISON: No exams were available for comparison FINDINGS: BONES: No acute fracture is present. No bony destructive lesion is seen. JOINTS: No dislocation present. There are degenerative changes seen at both the acromioclavicular and glenohumeral joint. Cystic changes are seen in the greater tuberosity. There is some calcification adjacent to the greater tuberosity suggesting calcific tendinitis. SOFT TISSUE: There is a cardiac pacing device on the right. IMPRESSION: Degenerative changes seen in the right shoulder. DATA REPOSITORY: RADIATION DOSE DELIVERED:
== END 2024-09-27 11:16 ==
LOC: DI 11:00
PROVIDERS: PCP Family Medicine; Visit Provider Family Medicine
DX: M25.511 Pain in right shoulder (principal)
CPT/HCPCS: 73030

== ENCOUNTER → 2024-10-12 14:04 | Outpatient (BNVA) | payer MEDICARE, SELFPAY | PROVIDERS: PCP Family Medicine; Visit Provider Student in an Organized Health Care Education/Training Program | DX: Z95.810 Presence of automatic (implantable) cardiac defibrillator (principal); I49.5 Sick sinus syndrome | CPT/HCPCS: 93280 ==

== ENCOUNTER 2024-10-18 16:42 | Outpatient (REF) | payer MEDICARE, SELFPAY ==
[2024-10-18 13:11] LABS: ALT 33 U/L (14-59); AST 24 U/L (15-37); Albumin 3.7 g/dL (3.4-5.0); Alkaline Phosphatase 32 U/L (46-116); Anion Gap 5.3 mmol/L (3-11); BUN 18 mg/dL (7-18); Bilirubin, Total 0.6 mg/dL (0.2-1.0); CO2 29.7 mmol/L (21.0-32.0); CREATININE 1.2 mg/dL (0.55-1.02); Calcium 9.2 mg/dL (8.5-10.1); Calculated LDL 159 mg/dL (<100); Chloride 105 mmol/L (98-107); Cholesterol 255 mg/dL (<200); Estimated GFR 44.64 (mL/min/1.73m2); Glucose 88 mg/dL (74-106); HDL Cholesterol 83 mg/dL (>or=50); Potassium 4.2 mmol/L (3.5-5.1); Sodium 140 mmol/L (136-145); TSH (W/Ref FT4) 6.54 uIU/mL (0.36-3.74); Total Protein 6.5 g/dL (6.4-8.2); Triglyceride 67 mg/dL (<150); Vitamin B12 652 pg/mL (193-986)
[2024-10-18 13:31] LABS: FREE T4 0.85 ng/dL (0.76-1.46)
== END 2024-10-18 16:43 | disposition home or self-care (01) ==
LOC: LBN 16:42
PROVIDERS: PCP Family Medicine; Visit Provider Family Medicine
DX: E53.8 Deficiency of other specified B group vitamins (principal); I10 Essential (primary) hypertension; E03.9 Hypothyroidism, unspecified
CPT/HCPCS: 80053; 80061; 82607; 84439; 84443